=== PATIENT | male | born 1970 | race African-American/Black ===

== ENCOUNTER → 2020-04-04 | Outpatient (CLI) | payer OTHER ==
[~2020-04-04] MED LIST: ASPIRIN325; BACTRIM DS TAB1 EACH; GLUMETZA500; LISINOPRIL20 MG; LORTAB 7.5/5001 TA3; MULTIVITAMINS; ZOCOR 20 MG TAB20 M1
== END ==
LOC: ULTRA 15:04
PROVIDERS: ATTEND Nurse Practitioner
DX: M79.89 Other specified soft tissue disorders (principal)

== ENCOUNTER → 2020-12-10 | Outpatient (CLI) | payer OTHER ==
[~2020-12-10] VITALS: Ht 185.4 cm; Wt 108.9 kg
[~2020-12-10] MED LIST changes: +COQ-10100 MG PO; +FISH OIL 1,001000 M3 PO; -LISINOPRIL20 MG; +LISINOPRIL20 MG PO; -ZOCOR 20 MG TAB20 M1; +ZOCOR 20 MG TAB20 M1 PO
== END | disposition home or self-care (01) ==
LOC: GI 07:40
PROVIDERS: ATTEND Internal Medicine Gastroenterology
DX: Z12.11 Encounter for screening for malignant neoplasm of colon (principal); Z53.8 Procedure and treatment not carried out for other reasons; I12.0 Hypertensive chronic kidney disease with stage 5 chronic kidney disease or end stage renal disease; N18.6 End stage renal disease; E78.00 Pure hypercholesterolemia, unspecified; F41.9 Anxiety disorder, unspecified; Z98.890 Other specified postprocedural states; Z79.899 Other long term (current) drug therapy; Z87.891 Personal history of nicotine dependence

== ENCOUNTER → 2020-12-17 | Outpatient (CLI) | payer OTHER ==
[~2020-12-17] VITALS: Ht 185.4 cm; Wt 108.9 kg
--- NOTE | 2020-12-18 18:06 | PATH ---
[facility] [address] [place] [address] PATHOLOGY RPT PROCEDURE Name: PLEITEZKARINA OSULLIVANN Room #: REG ROBBIN Costa.#: [id number] Admission: 12/17/20 Date of : 66 Discharge: Report #: [id number] Path Case #: [id number] [facility] Accession Number: [id number] . 01 Material submitted: . PART A: cecum - CECAL COLON POLYP PART B: colon - ASCENDING COLON POLYP. Modifiers: ascending . 01 Clinical history: . COLONOSCOPY SCREENING . 02 Diagnosis: A. Polyp, cecal polyp, endoscopic biopsy: - Tubular adenoma. - Negative for high grade dysplasia. . B. Polyp, ascending colon polyp, endoscopic biopsy: - Tubular adenoma. - Negative for high grade dysplasia. (IUV/db; 12/18/2020) LBQ 12/18/2020 1423 Local . 02 Electronically signed: . Jannette Fernandez MD, Pathologist NPI- [id number] . 01 Gross description: . A. The specimen is received in formalin, labeled "Karina Pleitez and cecal polyp". It consists of a huff polypoid soft tissue fragment measuring 1.4 x 0.5 x 0.1 cm. The resection surface is inked green and the specimen is bisected. The specimen is entirely submitted between sponges in A1. . B. The specimen is received in formalin, labeled "Karina Pleitez and ascending polyp". It consists of a huff polypoid soft tissue fragment measuring 0.7 x 0.5 x 0.2 cm. The resection surface is inked green and the specimen is bisected. The specimen is entirely submitted between sponges in B1. (MRF; 12/17/2020) E/MFE 12/17/2020 1828 Local . 02 Pathologist provided ICD-10: D12.0, D12.2 . 02 CPT . 209018, [id number] [address] [address] PATHOLOGY RPT PROCEDURE Name: KARINA PLEITEZ Room #: REG [facility].#: [id number] Admission: 12/17/20 Date of : 66 Discharge: Report #: [id number] Path Case #: [id number] Specimen Comment: A courtesy copy of this report has been sent to [phone] Specimen Comment: [phone] Specimen Comment: Report sent to / DR OCHOA Performed at: [address], [place], [place] [id number] MD Familia Noel MD Phone: [phone] Performed at: [address] [id number] MD Jannette Fernandez MD Phone: [phone]
== END | disposition home or self-care (01) ==
LOC: GI 06:32
PROVIDERS: ATTEND Internal Medicine Gastroenterology
DX: Z12.11 Encounter for screening for malignant neoplasm of colon (principal); D12.0 Benign neoplasm of cecum; D12.2 Benign neoplasm of ascending colon; I12.9 Hypertensive chronic kidney disease with stage 1 through stage 4 chronic kidney disease, or unspecified chronic kidney disease; N18.6 End stage renal disease; F41.9 Anxiety disorder, unspecified; E78.00 Pure hypercholesterolemia, unspecified; Z98.890 Other specified postprocedural states; Z79.899 Other long term (current) drug therapy; Z87.891 Personal history of nicotine dependence; Z99.2 Dependence on renal dialysis
CPT/HCPCS: 62110; 62900

== ENCOUNTER 2021-04-14 19:25 | Inpatient (IN) | payer OTHER ==
[~2021-04-14] VITALS: Ht 185.4 cm; Wt 103.0 kg
--- NOTE | ~2021-04-14 | EMS ---
[facility] [address] [place] [address] EMS Patient Care Report Name: KARINA PLEITEZ Room #: PRE M.R.#: [id number] Admission: Attend Phys: Discharge: Date of : 66 Report #: [id number] THIS REPORT FOR: //name// Report Transmitted: 04/14/2021 18:54 EMS Care Summary [place], [place] Incident [id number] @ 04/14/2021 19:04 Incident Location [address] [place] [address] Patient KARINA PLEITEZ Male, 50 Years 1970 Patient Address Patient History Dialysis, Chief Complaint respiratory distress Disposition Transported [facility]/[place] Dispatch Reason Breathing Problem [facility] Narrative Arrived to find pt sitting on curb in parking lot of [address] with [address] and pt friend. Pt was on NC in apparent respiratory distress. Pt had told [facility] Steve L he did not have any breathing problems normally and had his dialysis appt yesterday. Pt work of breathing was not alleviated by O2 and continued to decline. Pt placed on cot, secured to cot with cot straps, and placed in back of unit. Pt placed on CPAP and M36 went en route emergency to closest hospital. Pt anxiety level did not allow for secure fit on face as pt kept pulling CPAP away. Pt was coached on his breathing and the benefits of CPAP. Pt initial room air sat on scene was low however in unit, pt cold hands and anxious movements made it difficult to get an accurate pulse ox reading after that. Pt level of consciousness started to decline as pt became lethargic. Pt switched from CPAP [facility] [address] [place] [address] EMS Patient Care Report Name: KARINA PLEITEZ Room #: PRE M.R.#: [id number] Admission: Attend Phys: Discharge: Date of : 66 Report #: [id number] to [facility]. Pt transported emergency without further incidents. Care to RN, rm 11. Initial Vitals @19:14BP: 170/137,Pain: 0/10,Glucose: 234, @19:16P: 95, @19:19P: 115,BP: 205/95, @PTAR: 24,BP: 220/100,GCS: 15,SpO2: 58,Revised Trauma: 12, Assessments @19:12MENTAL:Other,Event Oriented,Person Oriented,Place Oriented,Time Oriented,SKIN:Cyanotic,HEENT:Head/Face: No Abnormalities,Eyes: No Abnormalities,Neck/Airway: No Abnormalities,LUNG SOUNDS:General: No Abnormalities,Left Upper: No Abnormalities,Right Upper: No Abnormalities,Left Lower: No Abnormalities,Right Lower: No Abnormalities,ABDOMEN:General: No Abnormalities,Left Upper: No Abnormalities,Right Upper: No Abnormalities,Left Lower: No Abnormalities,Right Lower: No Abnormalities,PELVIS//GI:No Abnormalities,EXTREMITIES:Left Arm: Other,Right Arm: No Abnormalities,Left Leg: No Abnormalities,Right Leg: No Abnormalities,PULSE:NEURO:@19:21MENTAL:Other,SKIN:HEENT:LUNG SOUNDS:ABDOMEN:PELVIS//GI:EXTREMITIES:PULSE:NEURO: Impression Respiratory disorder Procedures @19:12 ALS Assessment Response: UnchangedSucceeded @PTAOxygen FlowRate: 8 Device: Nasal Cannula (NC) Response: UnchangedSucceeded @19:16 IV Therapy - Saline Lock 10cc (18 ga) Site: Antecubital-Right Response: UnchangedSucceeded @19:14 CPAP FlowRate: 10 Response: ImprovedSucceeded @19:20 Oxygen FlowRate: 15 Device: Bag Valve Mask (BVM) Response: ImprovedSucceeded @19:15 3-Lead ECG Response: UnchangedSucceeded 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,Oxygen FlowRate: 8 Device: Nasal Cannula (NC) Response: UnchangedSucceeded, STOCK CRANE OPERATOR,BP: 220/100 M,PULSE: ,RR: 24 R,SPO2: 58 Ox,ETCO2: ,BG: ,PAIN: ,GCS: 15, 19:03,Call Received 19:03,Dispatch Notified 19:04,Dispatched 19:04,En Route 19:10,On Scene 19:10,At Patient 19:12,ALS Assessment,Response: UnchangedSucceeded, 19:14,CPAP FlowRate: 10 Response: Gianluca, [facility] [address] [place] [address] EMS Patient Care Report Name: KARINA PLEITEZ Room #: [facility] M.R.#: [id number] Admission: Attend Phys: Discharge: Date of : 66 Report #: [id number] 19:14,BP: 170/137 M,PULSE: ,RR: R,SPO2: Ox,ETCO2: ,B,PAIN: 0,GCS: , 19:15,3-Lead ECG,Response: UnchangedSucceeded, 19:15,Depart Scene 19:16,IV Therapy - Saline Lock 10cc 18 ga Site: Antecubital-Right,Response: UnchangedSucceeded, 19:16,BP: / M,PULSE: 95,RR: R,SPO2: Ox,ETCO2: ,BG: ,PAIN: ,GCS: , 19:19,BP: 205/95 M,PULSE: 115,RR: R,SPO2: Ox,ETCO2: ,BG: ,PAIN: ,GCS: , 19:20,Oxygen FlowRate: 15 Device: Bag Valve Mask (BVM) Response: ImprovedSucceeded, 19:22,At Destination 19:31,Call Closed Disclaimer v1.1 Copyright 2020 [employer] This EMS Care Summary contains data elements from the applicable legal record (which may be displayed differently). It is designed to provide pertinent information for the following purposes: continuity of care, clinical quality, and state data reporting. The complete legal record is available to ED staff and administrators of the receiving hospital in [employer] Patient Tracker. All data is provided "as is."
[2021-04-14 19:26] VITALS: BP 227/121
[2021-04-14 19:48] LABS: HCO3 20.5 mmol/L (22.0-26.0); PCO2 39.6 mmHg (35.0-45.0); pH 7.332 (7.360-7.450)
[2021-04-14 19:50] LABS: EOSINOPHILS 1.3 % (0.0-3.0)
[2021-04-14 19:57] LABS: ABSOLUTE NEUTROPHILS 13.9 thou/uL (1.4-8.2); BASOPHILS 0.7 % (0.0-2.0); HEMOGLOBIN 11.1 gm/dL (14.0-18.0); LYMPHOCYTES 8.7 % (24.0-44.0); MCH 27.8 pg (26.0-34.0); MCHC 30.4 g/dL (28.0-37.0); MCV 91.5 fL (80.0-100.0); MONOCYTES 5.2 % (1.0-8.0); PLATELET COUNT 194 thou/uL (150-400); POLYS 84.1 % (36.0-66.0); RBC 3.97 mil/uL (4.50-6.00); RDW 18.3 % (10.5-14.5); WBC 16.5 thou/uL (4.0-11.0)
[2021-04-14 19:58] LABS: HEMATOCRIT 36.3 % (42.0-52.0)
[2021-04-14 20:46] LABS: ABSOLUTE NEUTROPHILS 13.2 thou/uL (1.4-8.2); BASOPHILS 0.7 % (0.0-2.0); EOSINOPHILS 0.4 % (0.0-3.0); HEMATOCRIT 31.5 % (42.0-52.0); HEMOGLOBIN 10.1 gm/dL (14.0-18.0); LYMPHOCYTES 1.7 % (24.0-44.0); MCH 28.1 pg (26.0-34.0); MCHC 31.9 g/dL (28.0-37.0); MONOCYTES 4.6 % (1.0-8.0); PLATELET COUNT 134 thou/uL (150-400); POLYS 92.6 % (36.0-66.0); RBC 3.58 mil/uL (4.50-6.00); RDW 18.2 % (10.5-14.5); WBC 14.3 thou/uL (4.0-11.0)
[2021-04-14 21:04] LABS: CALCIUM 8.1 mg/dL (8.5-10.1); CREATININE 10.5 mg/dL (0.7-1.3); POTASSIUM 4.5 mmol/L (3.5-5.1)
[2021-04-14 21:08] LABS: ALBUMIN 3.3 g/dL (3.4-5.0); DIRECT BILIRUBIN 0.3 mg/dL (<0.1-0.2); MAGNESIUM 1.9 mg/dL (1.8-2.4); TOTAL PROTEIN 7.1 g/dL (6.4-8.2)
[2021-04-14 21:11] LABS: ANISOCYTOSIS 2+; POIKILOCYTOSIS 1+; SCHISTOCYTES FEW; TARGET CELLS FEW
[2021-04-14 23:42] VITALS: BP 159/94
[2021-04-15] VITALS (11 sets, daily range): BP systolic 138–176; BP diastolic 77–121
[2021-04-15 02:45] LABS: CHOLESTEROL 88 mg/dL (<200); HDL CHOLESTEROL 48 mg/dL (>40); LDL CHOLESTEROL 32 mg/dL (<100); TC:HDL 1.8 Ratio (Not establshd); TRIGLYCERIDE 43 mg/dL (<150); VLDL 9 mg/dL (<40)
[2021-04-15 02:51] LABS: SERUM ASSESSMENT Clear
--- NOTE | 2021-04-15 03:02 | NUR ---
PT IS A 50 Y/O MALE ADMITTED TO UNIT AT AROUND 0130 FROM ED WITH DX OF FLASH PULMONARY EDEMA.HE ARRIVED TO UNIT VIA BED ACCOMPANIED BY RT AND ED STAFF.PT WAS ON BIPAP AND NITRO DRIP INFUSING ON ARRIVAL AND HAS REMAINED ON NITRO DRIP AND ON BIPAP WITH FIO2 80%.PT IS A/OX4.SEEMS TO BE IN NO ACUTE RESP DISTRESS.PT ABLE TO COMMUNICATE WHILE ON BIPAP AND ANSWERS ADMISSION QUESTIONS APPROPRIATELY.HYPERTENSIVE W/SBP 160S-170S.O2 SATS 95%. ON ARRIVAL TO UNIT.PT ORIENTED TO ,ADMISSION ASSESSMENT COMPLETED DOCUMENTED.MEDS NOT RECONCILLED SINCE PT DOES NOT REMEMEBER WHAT HE TAKES.HE REQUESTED TO WAIT FOR HER DAUGHTER TO BRING THE LIST OF MEDS IN THE MORNING.PT IS ON HD SAT,TUE,EDWIN.HAS FISTULA TO LEFT ARM WITH THRILL AND BRUIL.DENIES CHEST PAIN,N/V OR ANY OTHER DISCOMFORT.GIVEN FIRST ANTIBIOTIC DOSE AND LASIX ORDERED UPON ARRIVAL.PT DENIES ANY CONCERNS.
--- NOTE | 2021-04-15 06:53 | EKG ---
[address] [address] ELECTROCARDIOGRAM REPORT Name: KARINA PLEITEZ Room #: 211-P ADM IN M.R.#: [id number] Admission: 04/14/21 Attend Phys: Lazarus Delcid MD Discharge: Date of : 66 Report #: [id number] [facility] ED Test Date: 2021-04-14 Test Time: 19:33:27 Pat Name: KARINA PLEITEZ Department: Room: 211 Gender: M Telehealth Coordinator: ANTHONY : 1970 Requested By: Santos Rao Order Number: [id number] MD: Danielito Zheng Measurements Intervals War Rate: 105 P: 58 MI: 156 QRS: 1 QRSD: 81 T: 82 QT: 358 QTc: 474 Interpretive Statements Sinus tachycardia Left ventricular hypertrophy No previous ECG available for comparison Electronically Signed On 04-15-2021 6:53:24 PROPERTY INSURANCE AGENT by Danielito Zheng [email or web address] <ELECTRONICALLY SIGNED> By: Danielito Zheng MD, [facility] 04/15/21 0653 193 32 Danielito Zheng MD, FACC /EPI
[2021-04-15] MEDS ORDERED: NORVASC10 MG PO (07:20)
[2021-04-15] MEDS ORDERED: CARVEDILOL25 MG PO (07:21)
--- NOTE | 2021-04-15 14:17 | NUR ---
Assumed care of pt this AM. Pt is A&O x4, on Bipap @ 60% FiO2. SR w/ PACs on the monitor. Goal for today is to wean pt O2 as tolerated. This AM, pt down to 7L NC. Pt sat down to 80s, and bumped up to 9L around noon. Pt sats stable since. Sputum culture collected & sent. Daughter at bedside. This nurse update family on the phone. Pt received dialysis today w/ removal of 3L. Given PRN hydralazine for incresed BP after dialysis. Will continue to assess pt.
--- NOTE | 2021-04-15 14:27 | 2DMMODE ---
[facility] [address] [place] [address] 2 D/M-MODE ECHOCARDIOGRAM Name: KARINA PLEITEZ Room #: 211-P ADM IN M.R.#: [id number] Admission: 04/14/21 Attend Phys: Henry Sterling MD Discharge: Date of : 66 Report #: [id number] THIS REPORT FOR: cc: Carol Staley DNP, Mary E. DNP Santiago, Patrick MD [facility] ~ APPROVED REPORT Study performed: 04/15/2021 13:24:41 EXAM: Comprehensive 2D, Doppler, and color-flow Echocardiogram Patient Location: Bedside Room #: 211 Status: routine BSA: 2.27 HR: 90 bpm BP: 165/91 mmHg Other Information Study Quality: Good Indications Congestive Heart Failure Diabetes Dyspnea Hypertension/HDD 2D Dimensions IVSd: 12.45 (7-11mm) LVOT Diam: 25.65 (18-24mm) LVDd: 56.06 mm PWd: 12.68 (7-11mm) Ascending Ao: 29.91 (22-36mm) LVDs: 44.04 (25-40mm) Left Atrium: 37.26 (27-40mm) Aortic Root: 35.19 mm IVC: 23.00 mm Volumes Left Atrial Volume (Systole) Single Plane 4CH: 135.09 mL Single Plane 2CH: 119.12 mL LA ESV Index: 60.00 mL/m2 Aortic Valve AoV Peak Laith.: 1.54 m/s AO Peak Gr.: 9.47 mmHg LVOT Max P.50 mmHg LVOT Max V: 1.06 m/s [facility] [address] [address] 2 D/M-MODE ECHOCARDIOGRAM Name: KARINA PLEITEZ Room #: 211-P [facility] IN ..#: [id number] Admission: 04/14/21 Attend Phys: Henry Sterling, Discharge: Date of : 66 Report #: [id number] FILIPPO Vmax: 3.56 cm2 Mitral Valve E/A Ratio: 0.9 MV Decel. Time: 214.79 ms MV E Max Laith.: 0.85 m/s MV A Laith.: 1.00 m/s MV PHT: 62.29 ms IVRT: 101.50 ms Pulmonary Valve PV Peak Laith.: 1.28 m/s PV Peak Gr.: 6.57 mmHg Pulmonary Vein P Vein S: 0.66 m/s P Vein A: 0.24 m/s P Vein D: 0.45 m/s P Vein A Dur.: 110.7 msec P Vein S/D Ratio: 1.47 Tricuspid Valve TR Peak Laith.: 3.00 m/s TR Peak Gr.: 36.12 mmHg PA Pressure: 46.00 mmHg Left Ventricle Left ventricle is at the upper limits of normal. Mild concentric left ventricular hypertrophy. Left ventricular systolic function is mild to moderately decreased. LVEF is 40%. Grade I - abnormal relaxation pattern. Right Ventricle Right ventricle is at the upper limits of normal. The right ventricular systolic function is normal. Atria Left atrium is dilated. Right atrium is dilated. Aortic Valve The aortic valve is normal in structure. No aortic regurgitation is present. There is no aortic valvular stenosis. Mitral Valve The mitral valve is normal in structure. Trace mitral regurgitation. No evidence of mitral valve stenosis. Tricuspid Valve The tricuspid valve is normal in structure. There is trace tricuspid [facility] [place] [address] [place] [address] 2 D/M-MODE ECHOCARDIOGRAM Name: KARINA PLEITEZN Room #: 211-P [facility] IN .R.#: [id number] Admission: 04/14/21 Attend Phys: Henry Sterling, Discharge: Date of : 66 Report #: [id number] regurgitation. Estimated PAP 46 mmHg. There is moderate pulmonary hypertension. Pulmonic Valve The pulmonary valve is normal in structure. There is no pulmonic valvular regurgitation. Great Vessels The aortic root is normal in size. IVC is dilated and collapses >50% with inspiration. Pericardium Trace pericardial effusion. <Conclusion> Normal left ventricle size/mildmoderate concentric hypertrophy Ejection fraction 40-45%/mild global hypokinesis Grade 1 diastolic dysfunction Normal right ventricle size/function Normal atrial size Normal aortic/mitral valve structure and function Trace tricuspid valve insufficiency Moderate pulmonary hypertension Pulmonary systolic pressure estimated 46 mmHg Trace posterior pericardial effusion Normal aortic root size. <ELECTRONICALLY SIGNED> By: Danielito Zheng MD, FACC 04/15/211426 26 26 Danielito Zheng MD, FACC /INF
[2021-04-16 01:06] LABS: GLYCOHEMOGLOBIN (HGB A1C) 5.4 % (4.8-5.6)
[2021-04-16 04:10] VITALS: BP 167/104
[2021-04-16 07:00] VITALS: BP 186/90
--- NOTE | 2021-04-16 07:10 | NUR ---
ASSESSMENT DOCUMENTED.PT BEEN RESTING IN NO ACUTE DISTRESS.TOLERATED BIPAP ALL NOC.O2 NOW AT 6LITERS PNC.NO C/O PAIN OR ANY DISTRESS AT THIS TIME.PT RELATE TO BREATHING MUCH BETTER NOW. WILL CONT TO MONITOR PER POC.
[2021-04-16 11:00] VITALS: BP 158/108
[2021-04-16 13:19] LABS: HEMATOCRIT 31.3 % (42.0-52.0); HEMOGLOBIN 10.4 gm/dL (14.0-18.0); MCH 28.6 pg (26.0-34.0); MCHC 33.1 g/dL (28.0-37.0); MCV 86.4 fL (80.0-100.0); RBC 3.62 mil/uL (4.50-6.00); RDW 17.6 % (10.5-14.5); WBC 7.9 thou/uL (4.0-11.0)
[2021-04-16 13:33] LABS: CALCIUM 8.7 mg/dL (8.5-10.1); POTASSIUM 3.6 mmol/L (3.5-5.1)
[2021-04-16 13:35] LABS: CREATININE 5.8 mg/dL (0.7-1.3)
--- NOTE | 2021-04-16 13:38 | NUR ---
patient admits with pulmonary edema. Patient reports he resides in home with brother. 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 dtr spoke with weapons system instrument mechanic who called casemgt to alert family wants new dialysis clinic. They would like a [facility] clinic. Sp with dtr gave her locations of DCI clinics. She plans to review locations and call back casemgt with clinic of interest. Sp with patients currentl clinic requesting clinical information to inquire with new clinic. Casemgt following.
[2021-04-16 15:30] VITALS: BP 129/73
--- NOTE | 2021-04-16 16:55 | NUR ---
Assumed care of pt this AM. Pt is A&O x4, received on 6L NC, currently on 2L NC. SR w/ PVCs on the monitor. Received dialysis again today w/ removal of 3.5 L. Blood pressure still elevated today. Up to the chair today.
[2021-04-16 17:30] VITALS: BP 151/96
[2021-04-16 19:15] VITALS: BP 145/83
[2021-04-17 03:54] VITALS: BP 160/86
[2021-04-17 05:23] LABS: ABSOLUTE NEUTROPHILS 5.3 thou/uL (1.4-8.2); BASOPHILS 0.7 % (0.0-2.0); EOSINOPHILS 3.5 % (0.0-3.0); HEMATOCRIT 30.2 % (42.0-52.0); HEMOGLOBIN 9.9 gm/dL (14.0-18.0); LYMPHOCYTES 9.7 % (24.0-44.0); MCH 28.7 pg (26.0-34.0); MCHC 32.9 g/dL (28.0-37.0); MCV 87.1 fL (80.0-100.0); MONOCYTES 6.9 % (1.0-8.0); PLATELET COUNT 122 thou/uL (150-400); POLYS 79.2 % (36.0-66.0); RBC 3.47 mil/uL (4.50-6.00); RDW 17.6 % (10.5-14.5); WBC 6.7 thou/uL (4.0-11.0)
--- NOTE | 2021-04-17 05:50 | NUR ---
ASSESSMENTS CHARTED. PATIENT RESTING IN ROOM DURING SHIFT. UP AT EVELYN IN ROOM.
[2021-04-17 06:05] LABS: ALBUMIN 3.1 g/dL (3.4-5.0); CALCIUM 8.4 mg/dL (8.5-10.1); POTASSIUM 3.9 mmol/L (3.5-5.1); TOTAL PROTEIN 6.6 g/dL (6.4-8.2)
[2021-04-17 06:18] LABS: CREATININE 8.3 mg/dL (0.7-1.3)
[2021-04-17 07:30] VITALS: BP 152/92
[2021-04-17] MEDS ORDERED: NORVASC10 MG PO (08:12)
[2021-04-17] MEDS ORDERED: HYDRALAZINE 2525 MG PO (08:12)
--- NOTE | 2021-04-17 10:15 | NUR ---
UPON SHIFT REPORT, PT WITH NONPRODUCTIVE COUGH, DENYING PAIN AND SOB WHILE ON ROOM AIR. UPON SHIFT ASSESSMENT, PT AOX4, PT DAUGHTER AT BEDSIDE. PT CONTINUES TO DENY PAIN AND SOB WHILE ON ROOM AIR. PT WITH INTERMITTENT CONGESTED COUGH, SPUTUM AMOUNT AND COLOR NOT OBSERVED. PT TOLERATING PO INTAKE OF FLUIDS AND RENAL DIET WITHOUT ISSUE. PT WITHOUT NAUSEA OR EMESIS. PT VOIDING PER URINAL AT BEDSIDE, OTHERWISE RESTING IN BED OR AMBULATING WITH STANDBY ASSIST. FREQUENT REPOSITIONING ENCOURAGED WHILE IN BED, PT NOTED TO SHIFT INDEPENDENTLY. SENSATION INTACT, CAPILLARY REFILL LESS THAN 3SEC, RADIAL PULSES PALPABLE, PEDAL PULSES FAINT TO PALPATION. PITTING +1 EDEMA NOTED TO LLE. PITTING +3 EDEMA NOTED TO RLE. PT ENCOURAGED TO NOTIFY STAFF FOR ALL NEEDS, CALL LIGHT WITHIN REACH, BED ALARM ON, BED LOCKED IN LOWEST POSITION, FREQUENT MONITORING WILL CONTINUE.
[2021-04-17] MEDS ORDERED: PROTONIX40 M2 PO (12:10)
[2021-04-17] MEDS ORDERED: CEFDINIR300 MG PO (12:16)
[2021-04-17 12:26] VITALS: BP 153/92
--- NOTE | 2021-04-17 14:13 | NUR ---
Rhea coordinator for DCi is at [facility] today. Faxed clinical information for review. Dtr reports she spoke with her dad and he does not want to change clinics until June. Spoke with his [facility] [place] [facility] faxed orders and alerted patient has information but has not chosen a clinic at this time regarding new DCI clinic. No further needs
--- NOTE | 2021-04-17 14:34 | NUR ---
PT IS AXOX4, PLEASANT; DISCHARGE EDUCATION CONDUCTED. PT COMMUNICATED UNDERSTANDING REGARDING FOLLOW UP APPT AND MEDICATIONS. DTR AT THE BEDSIDE. PT TO D/C WITH DTR TO HOME WITH FOLLOW UP DIALYSIS FOR THURS/SAT. LOW FALL PRECAUTIONS IN PLACE. NO CONCERNS AT THIS TIME.
--- NOTE | 2021-04-19 23:58 | HC ---
[facility] [place] [address] [place] [address] CONSULTATION Name: KARINA PLEITEZ Room #: 211-P [facility] IN M.R.#: [id number] Admission: 04/14/21 Attend Phys: Henry Sterling MD Discharge: 04/17/21 Date of : 66 Report #: [id number] THIS REPORT FOR: cc: Carol Staley DNP, Mary E. DNP Geha, Daniel J. MD ~ DATE OF SERVICE: 04/16/2021 INFECTIOUS DISEASE CONSULTATION REASON FOR CONSULTATION: I was asked to evaluate concerning pneumonia, respiratory failure in the setting of end-stage renal disease. HISTORY OF PRESENT ILLNESS: The patient was a 50-year-old with underlying hypertension, diabetes, who has been on hemodialysis via left upper extremity AV fistula without complication. He presents with a 3-day history of progressive shortness of breath associated with cough and minimal sputum production. He had mild chills, but no documented fever. Blood pressure has been running high and he was brought in by emergency personnel with O2 saturations 50%. He was placed on BiPAP. Over the ensuing 48 hours, has improved. He was placed on dialysis 2 days in a row and has had over 6 liters of fluid taken off. Chest x-ray showed bibasilar infiltrates. He has had no significant travel. 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 He has been COVID vaccinated. No hemoptysis or chest pain. No nausea, vomiting or diarrhea. REVIEW OF SYSTEMS: A 14-point review of system was negative other than what has been described above. PAST MEDICAL HISTORY: End-stage renal disease, on hemodialysis, left upper extremity fistula. He has had a toe amputation, hypertension, hyperlipidemia, diabetes, gastroesophageal reflux. FAMILY HISTORY: No report of tuberculosis. SOCIAL HISTORY: Past smoker, no significant alcohol intake. ALLERGIES: None known. MEDICATIONS: As noted on his MAR, which were reviewed. PHYSICAL EXAMINATION: GENERAL: He was afebrile and hemodynamically stable. Alert and cooperative. He was moderately obese. CHEST: Clear anteriorly with few crackles in the bases posteriorly. HEART: Regular, without murmur, gallop or rub. SKIN: Without rash or decubitus. His left upper extremity AV fistula was with [facility] [address] [place] [address] CONSULTATION Name: KARINA PLEITEZ Room #: 211-P [facility] IN ..#: [id number] Admission: 04/14/21 Attend Phys: Henry Sterling MD Discharge: 04/17/21 Date of : 66 Report #: [id number] thrill. No palpable adenopathy. HEENT: Eyes without scleral icterus. Mouth without mucositis. NECK: Supple. NEUROLOGIC: Cranial nerves intact. Strength in the upper and lower extremities was symmetric and within normal limits. PSYCHIATRIC: Mood without anxiety or depression. LABORATORY DATA: Reviewed. MICROBIOLOGY: Reviewed. IMAGING: Chest x-ray reviewed. IMPRESSION: 1. Acute respiratory failure with suspected community-acquired pneumonia and congestive heart failure. 2. End-stage renal disease. 3. Hypertension. 4. Hyperlipidemia. 5. Gastroesophageal reflux. 6. Diabetes. RECOMMENDATIONS: We will continue empiric antibiotic coverage pending culture results. Follow serial chest x-ray and laboratory. Monitor diet to control blood pressure and fluid shifts. <ELECTRONICALLY SIGNED> By: Mp Gonzales MD 04/19/21 [id number] [id number] Mp Gonzales MD /nt
== END 2021-04-17 14:30 | disposition home or self-care (01) | DRG 871 ==
LOC: ER 19:25 → 2N 22:40 → EROBS 22:40 → 2N 04-15 00:37
PROVIDERS: Nurse Practitioner; Nurse Practitioner Family; Specialist; Student in an Organized Health Care Education/Training Program; ADMIT Internal Medicine; ATTEND Internal Medicine
PROC: 5A0935A Assistance with Respiratory Ventilation, Less than 24 Consecutive Hours, High Flow/Velocity Cannula (ICD-10-PCS; principal; 2021-04-15)
PROC: 5A1D70Z Performance of Urinary Filtration, Intermittent, Less than 6 Hours Per Day (ICD-10-PCS; principal; 2021-04-15)
PROC: 5A09357 Assistance with Respiratory Ventilation, Less than 24 Consecutive Hours, Continuous Positive Airway Pressure (ICD-10-PCS; principal; 2021-04-15)
PROC: 5A0935A Assistance with Respiratory Ventilation, Less than 24 Consecutive Hours, High Flow/Velocity Cannula (ICD-10-PCS; 2021-04-16)
PROC: 5A09357 Assistance with Respiratory Ventilation, Less than 24 Consecutive Hours, Continuous Positive Airway Pressure (ICD-10-PCS; 2021-04-16)
DX: A41.9 Sepsis, unspecified organism (principal); J18.9 Pneumonia, unspecified organism; N18.6 End stage renal disease; J96.01 Acute respiratory failure with hypoxia; I50.43 Acute on chronic combined systolic (congestive) and diastolic (congestive) heart failure; I13.2 Hypertensive heart and chronic kidney disease with heart failure and with stage 5 chronic kidney disease, or end stage renal disease; I42.9 Cardiomyopathy, unspecified; Z20.822 Contact with and (suspected) exposure to COVID-19; E78.00 Pure hypercholesterolemia, unspecified; K21.9 Gastro-esophageal reflux disease without esophagitis; E78.5 Hyperlipidemia, unspecified; E11.22 Type 2 diabetes mellitus with diabetic chronic kidney disease; D64.9 Anemia, unspecified; I16.0 Hypertensive urgency; G47.33 Obstructive sleep apnea (adult) (pediatric); Z89.429 Acquired absence of other toe(s), unspecified side; Z87.891 Personal history of nicotine dependence; Z82.49 Family history of ischemic heart disease and other diseases of the circulatory system
CPT/HCPCS: 10081; 32100

== ENCOUNTER → 2021-05-09 | Outpatient (CLI) | payer OTHER ==
[~2021-05-09] MED LIST changes: +CARVEDILOL25 MG PO; +CEFDINIR300 MG PO; +HYDRALAZINE 2525 MG PO; +NORVASC10 MG PO; +PROTONIX40 M2 PO
== END ==
LOC: CAT 13:01
PROVIDERS: ATTEND Nurse Practitioner
DX: Z13.6 Encounter for screening for cardiovascular disorders (principal); I25.10 Atherosclerotic heart disease of native coronary artery without angina pectoris